=== PATIENT | female | born 1965 | race Caucasian/White ===

== ENCOUNTER 2016-07-28 21:15 | Emergency (ER) | payer OTHER ==
[2016-07-28 22:17] LABS: HCT 40.2 % (37.0-47.0); HGB 13.2 g/dl (12.5-16.0); MCH 29.7 pg (25.0-31.0); MCHC 32.8 g/dL (32.0-36.0); MCV 90.3 fL (78.0-100.0); RBC 4.45 M/uL (4.20-5.40); WBC 7.7 K/uL (4.0-10.5)
[2016-07-28 22:18] LABS: BASOPHIL 0.5 % (0-2); EOSINOPHIL 5.2 % (0-5); LYMPHOCYTE 25.1 % (15-48); MONOCYTE 7.2 % (0-12); MPV 9.2 fL (6.0-9.5); PLT 210 K/uL (150-400); RDW 14.3 % (11.5-14.0)
[2016-07-28 22:30] LABS: CREATININE 0.7 mg/dL (0.5-1.0); POTASSIUM 3.7 mmol/L (3.5-5.1)
[2016-07-28 22:33] LABS: TROPONIN T < 0.010 ng/mL
== END 2016-07-28 23:33 | disposition home or self-care (01) ==
LOC: FER 21:15
PROVIDERS: Emergency Medicine
DX: R07.89 Other chest pain (principal); F41.9 Anxiety disorder, unspecified; R11.0 Nausea; G89.29 Other chronic pain; M54.9 Dorsalgia, unspecified; F17.210 Nicotine dependence, cigarettes, uncomplicated; Z79.899 Other long term (current) drug therapy; Z90.49 Acquired absence of other specified parts of digestive tract; Z90.710 Acquired absence of both cervix and uterus
CPT/HCPCS: 36415; 71020; 80048; 82550; 82553; 84484; 85025; 93005

== ENCOUNTER 2021-09-10 19:26 | Emergency (ER) | payer OTHER ==
[~2021-09-10 19:26] MED LIST: ACETAMINOPHEN500 M1 PO; CLARITIN10 MG PO; EPIPEN0.3 MG/0.3 SC; PEPCID AC20 MG PO; PHENERGAN25 M1 PO; PROTONIX 40MG T40 MG PO; VENTOLIN HFA IN18 GM INH; VIVELLE-DOT1 EAC2 TOP
[2021-09-10 20:16] LABS: BILIRUBIN NEGATIVE (NEGATIVE); BLOOD NEGATIVE Ery/uL (NEGATIVE); CLARITY CLEAR (CLEAR); GLUCOSE (U) NORMAL (NORMAL); LEUKOCYTES NEGATIVE Leu/uL (NEGATIVE); NITRITE NEGATIVE (NEGATIVE); PROTEIN NEGATIVE (NEGATIVE); SPECIFIC GRAVITY <=1.005 (1.001-1.030); UROBILINOGEN 0.2 mg/dL (0.2-1.0)
[2021-09-10 20:18] LABS: COLOR STRAW (YELLOW)
[2021-09-10 20:29] LABS: BACTERIA TRACE
[2021-09-10 20:36] LABS: BASOPHIL 0.7 % (0-2); EOSINOPHIL 1.9 % (0-5); HGB 14.3 g/dl (12.5-16.0); LYMPHOCYTE 16.6 % (15-48); MCH 29.1 pg (25.0-31.0); MCHC 31.8 g/dL (32.0-36.0); MCV 91.5 fL (78.0-100.0); MONOCYTE 6.6 % (0-12); NEUTROPHIL 73.8 % (41-80); NRBC 0; PLT 239 K/uL (150-400); RBC 4.92 M/uL (4.20-5.40); RDW 13.5 % (11.5-14.0); WBC 11.4 K/uL (4.0-10.5)
[2021-09-10 20:50] LABS: ALBUMIN 4.2 g/dL (3.4-5.0); BILIRUBIN - TOTAL 0.4 mg/dL (0.2-1.0); BUN/CREAT RATIO (CALC) 9.4 RATIO; CREATININE 0.64 mg/dL (0.51-0.95); GLOBULIN (CALCULATION) 3.2 g/dL; POTASSIUM 4.1 mmol/L (3.5-5.1); TOTAL PROTEIN 7.4 g/dL (6.4-8.2)
== END 2021-09-10 22:38 | disposition home or self-care (01) ==
LOC: FER 19:26
PROVIDERS: Emergency Medicine
DX: R10.9 Unspecified abdominal pain (principal); R11.2 Nausea with vomiting, unspecified; Z28.310 Unvaccinated for COVID-19
CPT/HCPCS: 36415; 80053; 81001; 83690; 85025; J1170; J7030; Q0169

== ENCOUNTER 2021-09-12 13:02 | Emergency (ER) | payer OTHER ==
[2021-09-12 13:58] LABS: BASOPHIL 0.4 % (0-2); EOSINOPHIL 0.6 % (0-5); HCT 43.2 % (37.0-47.0); HGB 13.8 g/dl (12.5-16.0); LYMPHOCYTE 15.8 % (15-48); MCH 28.8 pg (25.0-31.0); MCHC 31.9 g/dL (32.0-36.0); MONOCYTE 6.9 % (0-12); MPV 10.1 fL (6.0-9.5); NEUTROPHIL 75.9 % (41-80); NRBC 0; PLT 227 K/uL (150-400); RDW 13.5 % (11.5-14.0)
[2021-09-12 14:05] LABS: ALBUMIN 3.7 g/dL (3.4-5.0); BILIRUBIN - TOTAL 0.9 mg/dL (0.2-1.0); BUN/CREAT RATIO (CALC) 13.8 RATIO; CREATININE 0.58 mg/dL (0.51-0.95); GLOBULIN (CALCULATION) 3.2 g/dL; POTASSIUM 3.9 mmol/L (3.5-5.1); TOTAL PROTEIN 6.9 g/dL (6.4-8.2)
[2021-09-12 16:11] LABS: BILIRUBIN NEGATIVE (NEGATIVE); BLOOD NEGATIVE Ery/uL (NEGATIVE); CLARITY CLEAR (CLEAR); COLOR YELLOW (YELLOW); GLUCOSE (U) NORMAL (NORMAL); LEUKOCYTES NEGATIVE Leu/uL (NEGATIVE); NITRITE NEGATIVE (NEGATIVE); PROTEIN NEGATIVE (NEGATIVE); UROBILINOGEN 0.2 mg/dL (0.2-1.0)
== END 2021-09-12 16:05 | disposition home or self-care (01) ==
LOC: FER 13:02
PROVIDERS: Emergency Medicine
DX: K31.84 Gastroparesis (principal); Z28.310 Unvaccinated for COVID-19; Z87.891 Personal history of nicotine dependence
CPT/HCPCS: 36415; 80053; 81003; 83690; 84484; 85025; 93005; C9113; J2550; J7030

== ENCOUNTER 2021-10-21 21:03 | Emergency (ER) | payer OTHER | END 2021-10-21 23:55 | disposition home or self-care (01) | LOC: FER 21:03 | DX: K20.90 Esophagitis, unspecified without bleeding (principal); F17.200 Nicotine dependence, unspecified, uncomplicated; Z28.310 Unvaccinated for COVID-19 | CPT/HCPCS: 99283 ==

== ENCOUNTER 2021-10-23 20:47 | Emergency (ER) | payer OTHER ==
[2021-10-23 21:48] LABS: BASOPHIL 0.8 % (0-2); HCT 41.5 % (37.0-47.0); HGB 13.5 g/dl (12.5-16.0); LYMPHOCYTE 25.7 % (15-48); MCHC 32.5 g/dL (32.0-36.0); MCV 89.1 fL (78.0-100.0); MONOCYTE 7.5 % (0-12); MPV 9.8 fL (6.0-9.5); NEUTROPHIL 64.7 % (41-80); NRBC 0; PLT 253 K/uL (150-400); RBC 4.66 M/uL (4.20-5.40); RDW 13.6 % (11.5-14.0); WBC 7.8 K/uL (4.0-10.5)
[2021-10-23 22:08] LABS: ALBUMIN 4.1 g/dL (3.4-5.0); BILIRUBIN - TOTAL 0.4 mg/dL (0.2-1.0); BUN/CREAT RATIO (CALC) 12.1 RATIO; CREATININE 0.66 mg/dL (0.51-0.95); GLOBULIN (CALCULATION) 2.9 g/dL; POTASSIUM 3.8 mmol/L (3.5-5.1)
[2021-10-23] MEDS ORDERED: PHENERGAN25 M1 PO (22:49)
== END 2021-10-23 23:17 | disposition home or self-care (01) ==
LOC: FER 20:47
PROVIDERS: Internal Medicine
DX: K31.84 Gastroparesis (principal); Z28.310 Unvaccinated for COVID-19
CPT/HCPCS: 36415; 80053; 85025; C9113; J2550; J7030